=== PATIENT | male | born 1990 | race African-American/Black ===

== ENCOUNTER 2018-09-19 09:11 | Emergency (ER) | payer MEDICAID ==
[2018-09-19] MEDS ORDERED: IPRATROPIUM/ALBUTEROL 0.5-2.5 MG/3 ML AMPUL NEB ONE (09:46)
[2018-09-19] MEDS ORDERED: DEXAMETHASONE SOD PHOS INJ 10 MG/1 ML VIAL IM ONE (09:46)
--- NOTE | 2018-09-19 10:53 | ER Document Report ---
ED Respiratory Problem - General Chief Complaint: Breathing Difficulty Stated Complaint: DIFFICULTY BREATHING Time Seen by Provider: 09/19/18 09:39 Information source: Patient Notes: Patient is a 28-year-old male comes emergency room complaining of shortness of breath and wheezing. Patient states he has a history of asthma he smokes occasionally and started having difficulty with his breathing yesterday. Patient states he has an MDI at home although it is almost empty and does not know how old it is. Also states that he received the flu shot 3 days ago. He also complains of congestion runny nose a productive cough of yellow. And really really bad congestion in the upper chest. He also states he gets into coughing fits. He states he has felt hot but not sure if he had a temperature. He is currently taking nothing for aches or pains or fever. Currently he is unemployed. TRAVEL OUTSIDE OF THE [place] IN LAST 30 DAYS: No - HPI Patient complains to provider of: Asthma Onset: Yesterday Initiating Event: Out of meds, URI Quality of pain: Achy Severity: Moderate Pain Level: 3 Context: Smoker Short of Breath: Moderate Cough: Productive Sputum amount: Scant Sputum color: Yellow At home treatment: Bronchodilators Associated symptoms: Chills, Congestion, Cough, Earache, Fever, Headache, PND, Runny nose, Sinus pain/pressure, Short of breath, Wheezing Similar symptoms previously: Yes Recently seen / treated by doctor: No - Related Data Allergies/Adverse Reactions: iodine [Iodine] Allergy (Mild, Verified 09/19/18 09:11) Shellfish * [Shellfish] Allergy (Mild, Verified 09/19/18 09:11) VOMITING Past Medical History - General Information source: Patient - Social History Smoking Status: Current Some Day Smoker Cigarette use (# per day): Yes Chew tobacco use (# tins/day): No Smoking Education Provided: Yes Frequency of alcohol use: Occasional Drug Abuse: None Family History: Reviewed & Not Pertinent, Arthritis, CAD, CVA, Hypertension, Thyroid Disfunction Patient has suicidal ideation: No Patient has homicidal ideation: No Pulmonary Medical History: Reports: Hx Asthma, Hx Bronchitis, Hx Pneumonia Neurological Medical History: Reports: Hx Migraine Renal/ Medical History: Denies: Hx Peritoneal Dialysis GI Medical History: Reports: Hx Irritable Bowel Musculoskeletal Medical History: Reports Hx Musculoskeletal Trauma Psychiatric Medical History: Reports: Hx Anxiety, Hx Depression, Hx Schizophrenia Past Surgical History: Reports: Hx Genitourinary Surgery - Immunizations Immunizations up to date: Yes Hx Diphtheria, Pertussis, Tetanus Vaccination: Yes - unknown Review of Systems - Review of Systems Constitutional: Fever EENT: No symptoms reported, Ear pain, Nose congestion, Nose discharge, Sinus pressure, Sinus discharge Cardiovascular: No symptoms reported Respiratory: See HPI, Cough, Short of breath, Sputum, Wheezing Gastrointestinal: No symptoms reported Genitourinary: No symptoms reported Male Genitourinary: No symptoms reported Musculoskeletal: No symptoms reported Skin: No symptoms reported Hematologic/Lymphatic: No symptoms reported Neurological/Psychological: No symptoms reported -: Yes All other systems reviewed and negative Physical Exam - Vital signs Vitals: Temp Pulse Resp BP Pulse Ox 98 F 82 22 H 108/62 94 09/19/18 09:16 09/19/18 09:16 09/19/18 09:16 09/19/18 09:16 09/19/18 09:16 Interpretation: Normal - Notes Notes: PHYSICAL EXAMINATION: GENERAL: Well-nourished well-developed 28-year-old male who is in no apparent distress but is uncomfortable appearing.. HEAD: Atraumatic, normocephalic. EYES: Pupils equal round and reactive to light, extraocular movements intact, sclera anicteric, conjunctiva are normal. ENT: Examination head and upper airway showed nasal mucosa to be moderately erythematous and edematous with some yellowish rhinorrhea noted. Also noted is bilateral nasal congestion. Examination of the ears show TMs to be bulging with some air-fluid levels right greater than left. External canals are clear. There is no erythema in the external canals. Further examination of the oral cavity shows the posterior pharynx to be moderately erythematous with no exudate noted tonsils have mild erythema but no exudate noted. Uvula is midline with no exudate. No encroachment upon the uvula. There is noted drainage in the posterior pharynx to be yellowish green color that appears very thick. NECK: Normal range of motion, supple without lymphadenopathy LUNGS: Auscultation patient's lung smiley show he has bilateral breath sounds of breath sounds decreased moderately to severely throughout all lung smiley with noticeable inspiratory and expiratory wheeze with some upper airway rhonchi that clears on cough. HEART: Regular rate and rhythm without murmurs ABDOMEN: Soft, nontender, nondistended abdomen. No guarding, no rebound. No masses appreciated. Musculoskeletal: Normal range of motion, no pitting or edema. No cyanosis. NEUROLOGICAL:. Normal speech, normal gait. Normal sensory, motor exams PSYCH: Normal mood, normal affect. SKIN: Warm, Dry, normal turgor, no rashes or lesions noted. Course - Re-evaluation Re-evalutation: 09/19/18 11:35 Patient improved greatly with the nebulized treatments back to back and to the steroid injection. I have informed him of sending him home on a steroid taper and MDI Proventil and I am writing him for a nebulizer machine along with the nebulized medications. I really think benefit that will be made by patient taking his early treatments at home. Informed him to return to ER if he has any concerns or problems. - Vital Signs Vital signs: Temp Pulse Resp BP Pulse Ox 98 F 82 22 H 108/62 94 09/19/18 09:16 09/19/18 09:16 09/19/18 09:16 09/19/18 09:16 09/19/18 09:16 Discharge - Discharge Clinical Impression: Upper respiratory infection, acute, Acute asthmatic bronchitis Asthma attack Qualifiers: Asthma severity: severe Asthma persistence: persistent Qualified Code(s): J45.51 - Severe persistent asthma with (acute) exacerbation Condition: Stable Disposition: HOME, SELF-CARE Instructions: Upper Respiratory Illness ([facility]), Asthma ([facility]) Additional Instructions: As we discussed I am writing you for allowing the nebulizer machines I believe this should be sufficient for you to get 1 and 1 of the pharmacies. If not you will need to talk to your primary care provider. I am also giving the name of the [facility] the supplies you might try for long-term follow-up. Should you have any concerns or problems return to ER for recheck. Prescriptions: Albuterol Sulfate [Proventil 0.5% Neb 2.5 mg/0.5 ml Vial.neb] 2.5 mg NEB RTQ4 PRN #60 vial.neb PRN Reason: Albuterol Sulfate [Proventil Hfa] 6.7 gm IH Q6 PRN #1 [id number] PRN Reason: Prednisone 10 mg PO ASDIR PRN 6 Days #1 tab.[email or web address] PRN Reason: Referrals: MARY KATE LEACH MD [Primary Care Provider] - Follow up as needed [facility] [NO LOCAL MD] - Follow up as needed
[2018-09-19 12:00] VITALS: BP 137/83
== END 2018-09-19 12:00 | disposition home or self-care (01) ==
LOC: ER 09:11
DX: J45.51 Severe persistent asthma with (acute) exacerbation (principal); J06.9 Acute upper respiratory infection, unspecified; R06.02 Shortness of breath; R05 Cough; R09.89 Other specified symptoms and signs involving the circulatory and respiratory systems; R09.82 Postnasal drip; R68.83 Chills (without fever); J34.89 Other specified disorders of nose and nasal sinuses; R09.81 Nasal congestion; F17.210 Nicotine dependence, cigarettes, uncomplicated; Z91.013 Allergy to seafood; Z87.01 Personal history of pneumonia (recurrent)
CPT/HCPCS: 94640; 99284; 96372; J1100; J7620

== ENCOUNTER 2020-10-21 05:28 | Emergency (ER) | payer MEDICAID ==
[2020-10-21 05:37] VITALS: BP 148/100
== END 2020-10-21 06:30 | disposition left against medical advice (07) ==
LOC: ER 05:28
DX: Z53.21 Procedure and treatment not carried out due to patient leaving prior to being seen by health care provider (principal)